=== PATIENT | male | born 1970 | race Two or more races ===

== ENCOUNTER 2018-12-13 17:58 | Emergency (ER) | payer MEDICAID ==
[~2018-12-13] VITALS: Ht 175.3 cm; Wt 108.9 kg
[2018-12-13] MEDS ORDERED: ATOR20TA PO (18:26)
[2018-12-13] MEDS ORDERED: NIFE30TA89 PO (18:26)
--- NOTE | 2018-12-13 18:59 | NUR ---
DR SAUCEDA AT BEDSIDE FOR EVAL. HAND OFF REPORT GIVEN TO BENJY CHOWDARY.
[2018-12-13] MEDS ORDERED: ONDANSETRON 4 MG/2 ML VIAL ONE (19:59)
[2018-12-13] MEDS ORDERED: HYDROMORPHONE 1 MG/1 ML DISP.SYRIN ONE (19:59)
[2018-12-13] MEDS ORDERED: ONDANSETRON 4 MG/2 ML VIAL IM ONE (20:00)
[2018-12-13] MEDS ORDERED: HYDROMORPHONE 1 MG/1 ML DISP.SYRIN IM ONE (20:00)
--- NOTE | 2018-12-13 20:03 | NUR ---
Patient discharged to home in stable conditon. Written and verbal after care instructions given. Patient verbalizes understanding of instructions.
== END 2018-12-13 20:06 | disposition home or self-care (01) ==
LOC: ER 18:00
DX: R07.89 Other chest pain (principal); E11.9 Type 2 diabetes mellitus without complications; Z79.899 Other long term (current) drug therapy
CPT/HCPCS: 36415; 71045; 84484; 93005; 96372 ×2; 99284; J1170; J2405; 70030-TC; A4663

== ENCOUNTER 2019-02-03 13:07 | Emergency (ER) | payer MEDICAID ==
[~2019-02-03] VITALS: Ht 175.3 cm; Wt 108.9 kg
[~2019-02-03 13:07] MED LIST: ATOR20TA PO; NIFE30TA89 PO
[2019-02-03] MEDS ORDERED: NIFE30TA2 PO (13:25)
[2019-02-03] MEDS ORDERED: LISI40TA4 PO (13:25)
[2019-02-03] MEDS ORDERED: GLIP10TA11 PO (13:25)
[2019-02-03] MEDS ORDERED: METF-440 PO (13:25)
[2019-02-03 13:26] LABS: BASOPHILS # (AUTO) 0.1 K/uL (0.0-8.0); BASOPHILS % (AUTO) 1.1 % (0.0-2.0); EOSINOPHILS # (AUTO) 0.2 K/uL (0.0-0.7); EOSINOPHILS % (AUTO) 1.8 % (0.0-7.0); HEMATOCRIT 40.2 % (36.7-47.1); HEMOGLOBIN 14.1 g/dL (12.5-16.3); LYMPHOCYTES # (AUTO) 2.5 K/uL (20.0-40.0); LYMPHOCYTES % (AUTO) 25.1 % (20.5-51.5); MEAN CORPUSCULAR HEMOGLOBIN 31.3 uug (23.8-33.4); MEAN CORPUSCULAR HGB CONC 35 g/dL (32.5-36.3); MEAN CORPUSCULAR VOLUME 89.4 fL (73.0-96.2); MONOCYTES # (AUTO) 0.7 K/uL (2.0-10.0); MONOCYTES % (AUTO) 6.9 % (0.0-11.0); NEUTROPHILS # (AUTO) 6.5 K/uL (1.8-8.9); NEUTROPHILS % (AUTO) 65.1 % (38.5-71.5); PLATELET COUNT (AUTO) 280 K/uL (152-348); WHITE BLOOD COUNT (AUTO) 9.9 K/uL (3.6-10.2)
[2019-02-03 13:33] LABS: CREATININE 0.7 mg/dL (0.6-1.3); POTASSIUM 4.2 mmol/L (3.5-5.1)
[2019-02-03 13:39] LABS: BILIRUBIN,DIRECT 0.2 mg/dL (0.0-0.2); BILIRUBIN,TOTAL 0.7 mg/dL (0.2-1.0); TOTAL PROTEIN, SERUM 8.3 g/dL (6.4-8.2)
[2019-02-03] MEDS ORDERED: KETOROLAC TROMETHAMINE 30 MG INJ IM ONE (14:30)
[2019-02-03] MEDS ORDERED: KETOROLAC TROMETHAMINE 30 MG INJ ONE (14:37)
--- NOTE | 2019-02-03 14:55 | NUR ---
Patient discharged to home in stable conditon. Written and verbal after care instructions given. Patient verbalizes understanding of instructions.
--- NOTE | 2019-02-03 14:55 | NUR ---
PT LEFT ER W/ STEADY GAIT ACCOMPAINED BY FAMILY.
[2019-02-03 14:56] VITALS: BP 133/76
== END 2019-02-03 14:57 | disposition home or self-care (01) ==
LOC: ER 13:09
DX: R07.89 Other chest pain (principal); E11.9 Type 2 diabetes mellitus without complications; F41.9 Anxiety disorder, unspecified; Z79.899 Other long term (current) drug therapy
CPT/HCPCS: 36415; 71045; 80048; 80076; 83880; 84484; 85025; 85379; 93005; 96372; 99284; J1885; 70030-TC; A4663

== ENCOUNTER 2019-06-17 12:58 | Emergency (ER) | payer MEDICAID, OTHER ==
[~2019-06-17] VITALS: Ht 172.7 cm; Wt 113.4 kg
[~2019-06-17 12:58] MED LIST changes: +GLIP10TA11 PO; +LISI40TA4 PO; +METF-440 PO; +NIFE30TA2 PO; -NIFE30TA89 PO
[2019-06-17] MEDS ORDERED: KETOROLAC TROMETHAMINE 15 MG INJ ONE (13:24)
[2019-06-17] MEDS ORDERED: KETOROLAC TROMETHAMINE 15 MG INJ IM ONE (13:30)
--- NOTE | 2019-06-17 14:32 | NUR ---
Patient eloped from facility. ER physician notified.
== END 2019-06-17 14:34 | disposition left against medical advice (07) ==
LOC: ER 12:58
DX: R10.9 Unspecified abdominal pain (principal); F41.9 Anxiety disorder, unspecified; E11.9 Type 2 diabetes mellitus without complications; Z79.899 Other long term (current) drug therapy
CPT/HCPCS: 96372; 99283; J1885; A4663

== ENCOUNTER 2023-03-26 16:58 | Emergency (ER) | payer OTHER ==
[~2023-03-26] VITALS: Ht 172.7 cm; Wt 122.5 kg
[~2023-03-26 16:58] MED LIST changes: +LISI40TA13 PO; -LISI40TA4 PO
[2023-03-26] MEDS ORDERED: DOXY100C5 PO (19:25)
[2023-03-26] MEDS ORDERED: ONDA4TAB5 PO (19:25)
[2023-03-26] MEDS ORDERED: LEVO500T90 PO (19:25)
[2023-03-26] MEDS ORDERED: HYDR-3980 PO (19:25)
[2023-03-26] MEDS ORDERED: HYDROMORPHONE 1 MG/1 ML DISP.SYRIN IM ONE (19:30)
[2023-03-26] MEDS ORDERED: DOXYCYCLINE HYCLATE 100 MG TABLET PO ONE (19:30)
[2023-03-26] MEDS ORDERED: CEFTRIAXONE 500 MG VIAL IM ONE (19:30)
[2023-03-26] MEDS ORDERED: ONDANSETRON ODT 4 MG TAB.RAPDIS SL ONE (19:30)
[2023-03-26] MEDS ORDERED: levoFLOXacin 500 MG TABLET PO ONE (19:30)
[2023-03-26] MEDS ORDERED: ONDANSETRON ODT 4 MG TAB.RAPDIS ONE (19:35)
[2023-03-26] MEDS ORDERED: levoFLOXacin 500 MG TABLET ONE (19:35)
[2023-03-26] MEDS ORDERED: CEFTRIAXONE 500 MG VIAL ONE (19:35)
[2023-03-26] MEDS ORDERED: DOXYCYCLINE HYCLATE 100 MG TABLET ONE (19:35)
[2023-03-26] MEDS ORDERED: HYDROMORPHONE 1 MG/1 ML DISP.SYRIN ONE (19:36)
[2023-03-26] MEDS ORDERED: LIDOCAINE HCL 1% 20 ML VIAL ONE (19:37)
[2023-03-26 20:37] VITALS: BP 135/74; TEMP 98.5; O2SAT 99
== END 2023-03-26 20:39 | disposition home or self-care (01) ==
LOC: ER 17:02
DX: N50.82 Scrotal pain (principal); E11.9 Type 2 diabetes mellitus without complications; Z79.2 Long term (current) use of antibiotics; Z79.899 Other long term (current) drug therapy
CPT/HCPCS: 99285; 76870; 96372 ×2; J0696; J3490; J1170; A4606; A4663; Q0162